=== PATIENT | male | born 1970 | race African-American/Black ===

== ENCOUNTER 2017-09-04 12:20 | Emergency (ER) | payer SELFPAY ==
[~2017-09-04] VITALS: Ht 182.9 cm; Wt 82.0 kg
[2017-09-04 14:06] VITALS: BP 109/72
== END 2017-09-04 16:53 | disposition home or self-care (01) ==
LOC: ER 12:55
DX: S63.257A Unspecified dislocation of left little finger, initial encounter (principal); W19.XXXA Unspecified fall, initial encounter; Y93.67 Activity, basketball; Y92.89 Other specified places as the place of occurrence of the external cause; Y99.8 Other external cause status
CPT/HCPCS: 99282